=== PATIENT | female | born 1985 | race Caucasian/White ===

== ENCOUNTER → 2017-01-25 | Outpatient (CLI) | payer OTHER | LOC: FIMAGING 12:05 | PROVIDERS: ATTEND Obstetrics & Gynecology | DX: Z34.02 Encounter for supervision of normal first pregnancy, second trimester (principal) ==

== ENCOUNTER → 2017-06-05 | Outpatient (CLI) | payer OTHER | LOC: FIMAGING 14:38 | PROVIDERS: ATTEND Obstetrics & Gynecology | DX: O28.3 Abnormal ultrasonic finding on antenatal screening of mother (principal); Z3A.38 38 weeks gestation of pregnancy ==

== ENCOUNTER 2017-06-13 23:17 | Inpatient (IN) | payer OTHER ==
[2017-06-13] MEDS ORDERED: OLIVE OIL 118 ML BTL MISC PRN (23:36)
[2017-06-13] MEDS ORDERED: OXYTOCIN/RINGERS LACTATE 1,000 ML IV PRN (23:36)
[2017-06-13] MEDS ORDERED: EPSOM SALT 454 GM TP PRN (23:36)
[2017-06-13] MEDS ORDERED: TERBUTALINE SULFATE 1 MG/ML VIAL IV PRN (23:36)
[2017-06-13] MEDS ORDERED: LR 1,000 ML IV PRN (23:36)
[2017-06-14] MEDS ORDERED: fentaNYL 2MCG/ML/BUP 0.1% RTU 100 ML BAG EP ONE
[2017-06-14] MEDS ORDERED: BUPIVACAINE 0.25% 30 ML SDV ONE (00:01)
[2017-06-14] MEDS ORDERED: PHENYLEPHRINE HCL 100 MCG/ML SYR ONE (00:01)
[2017-06-14] MEDS ORDERED: OLIVE OIL 118 ML BTL ONE (00:02)
[2017-06-14] MEDS ORDERED: fentaNYL 100 MCG/2 ML INJ ONE (00:02)
[2017-06-14] MEDS ORDERED: LIDOCAINE 1% 300 MG/30 ML SDV ONE (00:02)
[2017-06-14] MEDS ORDERED: MISOPROSTOL 200 MCG TAB ONE (00:03)
[2017-06-14] MEDS ORDERED: TERBUTALINE SULFATE 1 MG/ML VIAL ONE (00:03)
[2017-06-14] MEDS ORDERED: OXYTOCIN 10 UNIT/ML VIAL ONE (00:03)
[2017-06-14] MEDS ORDERED: AMMONIA AROMATIC 1 EACH AMP IH ONE (00:03)
[2017-06-14 00:22] LABS: % IMMATURE GRANULYOCYTES 0.6 % (0.0-1.1); ABSOLUTE IMMATURE GRANULOCYTES 0.06 10^3/uL (0.00-0.10); ADD DIFF? NO; ADD MORPH? NO; ADD SCAN? NO; ATYPICAL LYMPHOCYTE FLAG 0 (0-99); FRAGMENT RBC FLAG 10 (0-99); HEMATOCRIT 38.2 % (38.0-47.0); HEMOGLOBIN 13.6 g/dL (12.6-16.3); LEFT SHIFT FLG 0 (0-99); LIPEMIA HEMOLYSIS FLAG 90 (0-99); MEAN CELL HEMOGLOBIN 32.2 pg (27.9-34.1); MEAN CELL HEMOGLOBIN CONCENTR. 35.6 g/dL (32.4-36.7); MEAN CELL VOLUME 90.5 fL (81.5-99.8); MEAN PLATELET VOLUME 10.5 fL (8.7-11.7); PLATELET CLUMPS FLAG 10 (0-99); PLATELET COUNT 236 10^3/uL (150-400); RED BLOOD CELL COUNT 4.22 10^6/uL (4.18-5.33); RED CELL DISTRIBUTION WIDTH 12.3 % (11.5-15.2)
[2017-06-14] MEDS ORDERED: NALOXONE HCL 0.4 MG/ML INJ IVP PRN (00:41)
[2017-06-14] MEDS ORDERED: ONDANSETRON 4 MG/2 ML VIAL IVP PRN (00:41)
[2017-06-14] MEDS ORDERED: PHENYLEPHRINE HCL 100 MCG/ML SYR IVP PRN (00:41)
[2017-06-14] MEDS ORDERED: fentaNYL 2MCG/ML/BUP 0.1% RTU 100 ML EP SCH (01:00)
[2017-06-14] MEDS ORDERED: LR 500 ML IV SCH (01:00)
[2017-06-14 01:44] LABS: ALANINE AMINOTRANSFERASE 37 IU/L (9-52); ASPARTATE AMINOTRANSFERASE 35 IU/L (14-46); BILIRUBIN,TOTAL 0.2 mg/dL (0.1-1.4); BILIRUBIN-CONJUGATED 0.1 mg/dL (0.0-0.5); BILIRUBIN-UNCONJUGATED 0.1 mg/dL (0.0-1.1); CREATININE 0.8 mg/dL (0.6-1.0); GLOMERULAR FILTRATION RATE > 60; LACTATE DEHYDROGENASE 555 IU/L (313-618); URIC ACID 7.5 mg/dL (2.5-6.8)
--- NOTE | 2017-06-14 04:24 | PDGENHP ---
History and Physical - Chief Complaint 32 y.o. at 39 5/7 weeks in active labor - History of Present Illness 32 y.o. at 39 5/7 weeks in active labor. History Information - Allergies/Home Medication List Allergies/Adverse Reactions: Sulfa (Sulfonamide Antibiotics) Allergy (Verified 06/13/17 23:36) Rash Home Medications: Labetalol HCl [Trandate 100 mg (*)] 1 tab PO BID 06/14/17 [Last Taken 06/13/17] Levothyroxine [Synthroid 50 mcg (*)] 50 mcg PO DAILY 06/14/17 [Last Taken ] 1 tab PO DAILY 06/14/17 [Last Taken 06/13/17] I have personally reviewed and updated: family history, medical history, social history, surgical history - Past Medical History Additional medical history: HSV I +, Hypothyroidism - Surgical History Reports: no pertinent surgical hx - Family History Positive for: cancer, diabetes type II, hypertension - Social History Smoking Status: Never smoked Alcohol Use: None Drug Use: None Review of Systems ROS: 10pt was reviewed & negative except for what was stated in HPI & below Constitutional: Reports: no symptoms, chills EENMT: Reports: no symptoms Cardiac: Reports: no symptoms Respiratory: Reports: no symptoms Gastrointestinal: Reports: no symptoms Genitourinary: Reports: no symptoms Muscolosketal: Reports: no symptoms Skin: Reports: no symptoms Neurological: Reports: no symptoms Hematologic/Lymphatic: Reports: no symptoms Immunologic/Allergy: Reports: no symptoms Physical Exam Constitutional: no apparent distress Eyes: PERRL Ears, Nose, Mouth, Throat: moist mucous membranes, hearing normal Cardiovascular: regular rate and rhythym, no murmur, rub, or gallop Respiratory: no respiratory distress Gastrointestinal: soft, non-tender abdomen, no palpable masses Genitourinary: no bladder fullness Skin: warm, normal color Musculoskeletal: full muscle strength, no muscle tenderness Neurologic: AAOx3 Psychiatric: interacting appropriately Lymph, Heme, Immunologic: no cervical LAD, no supraclavicular LAD Lab Data & Imaging Review 06/13/17 23:45 06/14/17 01:14 WBC 9.77 10^3/uL (3.80-9.50) H 06/13/17 23:45 RBC 4.22 10^6/uL (4.18-5.33) 06/13/17 23:45 Hgb 13.6 g/dL (12.6-16.3) 06/13/17 23:45 Hct 38.2 % (38.0-47.0) 06/13/17 23:45 MCV 90.5 fL (81.5-99.8) 06/13/17 23:45 MCH 32.2 pg (27.9-34.1) 06/13/17 23:45 MCHC 35.6 g/dL (32.4-36.7) 06/13/17 23:45 RDW 12.3 % (11.5-15.2) 06/13/17 23:45 Plt Count 236 10^3/uL (150-400) 06/13/17 23:45 MPV 10.5 fL (8.7-11.7) 06/13/17 23:45 Neut % (Auto) 66.4 % (39.3-74.2) 06/13/17 23:45 Lymph % (Auto) 25.0 % (15.0-45.0) 06/13/17 23:45 [place] % (Auto) 6.9 % (4.5-13.0) 06/13/17 23:45 Eos % (Auto) 0.7 % (0.6-7.6) 06/13/17 23:45 Baso % (Auto) 0.4 % (0.3-1.7) 06/13/17 23:45 Nucleat RBC Rel Count 0.0 % (0.0-0.2) 06/13/17 23:45 Absolute Neuts (auto) 6.49 10^3/uL (1.70-6.50) 06/13/17 23:45 Absolute Lymphs (auto) 2.44 10^3/uL (1.00-3.00) 06/13/17 23:45 Absolute Monos (auto) 0.67 10^3/uL (0.30-0.80) 06/13/17 23:45 Absolute Eos (auto) 0.07 10^3/uL (0.03-0.40) 06/13/17 23:45 Absolute Basos (auto) 0.04 10^3/uL (0.02-0.10) 06/13/17 23:45 Absolute Nucleated RBC 0.00 10^3/uL (0-0.01) 06/13/17 23:45 Immature Gran % 0.6 % (0.0-1.1) 06/13/17 23:45 Immature Gran # 0.06 10^3/uL (0.00-0.10) 06/13/17 23:45 BUN 10 mg/dL (7-23) 06/14/17 01:14 Creatinine 0.8 mg/dL (0.6-1.0) 06/14/17 01:14 Estimated GFR > 60 06/14/17 01:14 Uric Acid 7.5 mg/dL (2.5-6.8) H 06/14/17 01:14 Total Bilirubin 0.2 mg/dL (0.1-1.4) 06/14/17 01:14 Conjugated Bilirubin 0.1 mg/dL (0.0-0.5) 06/14/17 01:14 Unconjugated Bilirubin 0.1 mg/dL (0.0-1.1) 06/14/17 01:14 AST 35 IU/L (14-46) 06/14/17 01:14 ALT 37 IU/L (9-52) 06/14/17 01:14 Lactate Dehydrogenase 555 IU/L (313-618) 06/14/17 01:14 Patient ABO/Rh O POSITIVE 06/13/17 23:45 Antibody Screen NEGATIVE 06/13/17 23:45 Assessment & Plan Assessment: 32 y.o. female at 39 5/7 weeks in active labor. VSS- afebrile NST- reactive CAT I GBS NEG. SVE- 10/100/0 BBOW Plan: Admit in active labor. VS and EFM per protocol. Anticipate .
--- NOTE | 2017-06-14 04:28 | OBPROG ---
OBG Labor Progress Note Assessment/Plan: Assessment: 32 y.o. female at 39 5/7 weeks in active labor. VSS- afebrile NST- reactive CAT I Active labor. Plan: Admit to L&D for active labor. PETROS per patient request. Anticipate . 06/14/17 04:25 Subjective: Patient resting comfortably with PETROS in place and FOC present at bedside. Objective: 06/13/17 23:45 06/14/17 01:14 Patient ABO/Rh O POSITIVE 06/13/17 23:45 Uric Acid 7.5 mg/dL (2.5-6.8) H 06/14/17 01:14 Total Bilirubin 0.2 mg/dL (0.1-1.4) 06/14/17 01:14 Conjugated Bilirubin 0.1 mg/dL (0.0-0.5) 06/14/17 01:14 Unconjugated Bilirubin 0.1 mg/dL (0.0-1.1) 06/14/17 01:14 AST 35 IU/L (14-46) 06/14/17 01:14 ALT 37 IU/L (9-52) 06/14/17 01:14 Lactate Dehydrogenase 555 IU/L (313-618) 06/14/17 01:14 - SVE Dilation (cm): 10 Effacement (%): 100 Station: 0 Dilation Complete Date: 06/14/17 Dilation Complete Time: 04:14 - Procedures Non-surgical Procedures: Amniotomy - Physical Exam General Appearance: WD/WN, alert, no apparent distress Estimated Weight: 2501-3400g EENT: normal ENT inspection Neck: non-tender, full range of motion, normal inspection Respiratory: lungs clear, normal breath sounds Cardiac/Chest: regular rate, rhythm Abdomen: non-tender, soft Extremities: non-tender, normal inspection Back: Normal inspection Skin: normal color, warm/dry Neuro/Psych: alert, normal mood/affect, oriented x 3 Oxytocin Orders Assessment - Pre-Induction/Augmentation Assessment Gestational Age: 39 week(s) and 5 day(s) ICD10 Worksheet Patient Problems: Problems Problem Status Onset Active labor at term Acute - ICD10 Problem Qualifiers (1) Active labor at term
--- NOTE | 2017-06-14 06:31 | OBPROG ---
OBG Labor Progress Note Assessment/Plan: Assessment: 32 y.o. female at 39 5/7 weeks in active labor. VSS- afebrile NST- reactive CAT I Active labor. AROM with meconium-stained fluid. Plan: Allow patient to passively descend. Use peanut ball. Anticipate . 06/14/17 04:25 06/14/17 06:29 Subjective: Patient remains comfortable with PETROS in place. FOC present at bedside and supportive. Objective: 06/13/17 23:45 06/14/17 01:14 Patient ABO/Rh O POSITIVE 06/13/17 23:45 Uric Acid 7.5 mg/dL (2.5-6.8) H 06/14/17 01:14 Total Bilirubin 0.2 mg/dL (0.1-1.4) 06/14/17 01:14 Conjugated Bilirubin 0.1 mg/dL (0.0-0.5) 06/14/17 01:14 Unconjugated Bilirubin 0.1 mg/dL (0.0-1.1) 06/14/17 01:14 AST 35 IU/L (14-46) 06/14/17 01:14 ALT 37 IU/L (9-52) 06/14/17 01:14 Lactate Dehydrogenase 555 IU/L (313-618) 06/14/17 01:14 - SVE Dilation (cm): 10 Effacement (%): 100 Station: +1 Dilation Complete Date: 06/14/17 Dilation Complete Time: 04:14 - Procedures Non-surgical Procedures: Amniotomy - Physical Exam General Appearance: WD/WN, alert, no apparent distress Estimated Weight: 2501-3400g EENT: normal ENT inspection Neck: non-tender, supple, normal inspection Respiratory: lungs clear, normal breath sounds Cardiac/Chest: regular rate, rhythm Abdomen: non-tender, soft Extremities: non-tender, normal inspection Back: Normal inspection Skin: normal color, warm/dry Neuro/Psych: alert, normal mood/affect, oriented x 3 Oxytocin Orders Assessment - Pre-Induction/Augmentation Assessment Gestational Age: 39 week(s) and 5 day(s) Estimated Weight: 2501-3400g ICD10 Worksheet Patient Problems: Problems Problem Status Onset Active labor at term Acute - ICD10 Problem Qualifiers (1) Active labor at term
[2017-06-14] MEDS ORDERED: OXYTOCIN/RINGERS LACTATE 500 ML IV SCH (07:00)
[2017-06-14] MEDS ORDERED: CALCIUM CARBONATE 500 MG CHEWABLE TAB PO PRN (07:45)
[2017-06-14] MEDS ORDERED: ACETAMINOPHEN 325 MG TAB PO PRN (09:55)
[2017-06-14] MEDS ORDERED: SIMETHICONE 80 MG TAB CHEW PO PRN (09:55)
[2017-06-14] MEDS ORDERED: HYDROCORTISONE 0.5% CREAM TP PRN (09:55)
--- NOTE | 2017-06-14 09:57 | OBDEL ---
Info Type: Vaginal GBS+: No Indications for Delivery: Spontaneous Labor Vaginal Delivery - Labor and Delivery Onset of Contractions Date: 06/14/17 Onset of Contractions Time: 16:30 Onset of Contractions Type: Spontaneous Rupture of Membranes Date: 06/14/17 Rupture of Membranes Time: 04:14 Rupture of Membranes Type: Artificial Amniotic Fluid Color: Meconium Stained Dilation Complete Date: 06/14/17 Dilation Complete Time: 04:14 Placenta Delivery Date: 06/14/17 Non-surgical Procedures: Amniotomy Laceration: 2nd Degree Repair: 3-0, Vicryl Vaginal Sponge Count Correct: Yes Vaginal Needle Count Correct: Yes Vaginal Sweep Performed: No EBL: 200 ml Delivery Events: None [place] [facility] [place] Delivery Date: 06/14/17 Delivery Time: 08:43 ANDRES: 06/16/17 Gestational Age: 39 week(s) and 5 day(s) Sex of Infant: Male Score (1 Min): 8 Score (5 Min): 9 ICD10 Worksheet Patient Problems: Problems Problem Status Onset Active labor at term Acute
--- NOTE | 2017-06-14 09:58 | OBGCSDC ---
General Delivery Information - General Info : 1 Para: 0 Abortions: 0 Delivery Physician/CNM: Malia Camilo Admission Date: 06/14/17 Labs: Patient ABO/Rh O POSITIVE 06/13/17 23:45 Hct 38.2 % (38.0-47.0) 06/13/17 23:45 Vaginal - Diagnosis Labor: Spontaneous Rupture of Membranes Type: Artificial Amniotic Fluid Color: Meconium Stained Laceration: 2nd Degree Repair: 3-0, Vicryl Delivery Events: None - Operations/Procedures Non-surgical Procedures: Amniotomy - Hospital Course Antepartum: none Intrapartum: none - Delivery Type: Vaginal Non-surgical Procedures: Amniotomy EBL: 200 ml [place] [facility] [place] Delivery Date: 06/14/17 Delivery Time: 08:43 ANDRES: 06/16/17 Gestational Age: 39 week(s) and 5 day(s) Sex of Infant: Male Score (1 Min): 8 Score (5 Min): 9
[2017-06-14] MEDS: IBUPROFEN 600 MG TAB PO PRN ×3 (10:07→22:21)
[2017-06-14] MEDS ORDERED: ACYCLOVIR 400 MG TAB PO SCH (21:00)
[2017-06-14] MEDS: LABETALOL HCL 100 MG TAB PO SCH (21:46)
[2017-06-14] MEDS: DOCUSATE SODIUM 100 MG CAP PO PRN (21:46)
[2017-06-14] MEDS: LEVOTHYROXINE 50 MCG TAB PO SCH (21:54)
[2017-06-15] MEDS: IBUPROFEN 600 MG TAB PO PRN ×3 (04:26→19:45)
[2017-06-15] MEDS ORDERED: LEVOTHYROXINE 50 MCG TAB PO SCH (06:00)
--- NOTE | 2017-06-15 07:40 | OBPP ---
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 Baby is latching with use of nipple shield. Ambulating and urinating. Minimal pain. Lochia appropriate. No concerns Objective: 06/13/17 23:45 06/14/17 01:14 Patient ABO/Rh O POSITIVE 06/13/17 23:45 Uric Acid 7.5 mg/dL (2.5-6.8) H 06/14/17 01:14 Total Bilirubin 0.2 mg/dL (0.1-1.4) 06/14/17 01:14 Conjugated Bilirubin 0.1 mg/dL (0.0-0.5) 06/14/17 01:14 Unconjugated Bilirubin 0.1 mg/dL (0.0-1.1) 06/14/17 01:14 AST 35 IU/L (14-46) 06/14/17 01:14 ALT 37 IU/L (9-52) 06/14/17 01:14 Lactate Dehydrogenase 555 IU/L (313-618) 06/14/17 01:14 Temp Pulse Resp BP Pulse Ox 36.8 C 76 18 124/76 H 95 06/14/17 21:16 06/14/17 21:46 06/14/17 21:16 06/14/17 21:46 06/14/17 21:16 Gen: NAD Resp: unlabored CV: RRR Abd: soft, nontender, uterus firm below U Ext: warm/dry Uterine Tone: Firm
[2017-06-15] MEDS: DOCUSATE SODIUM 100 MG CAP PO PRN ×2 (08:22→19:45)
[2017-06-15] MEDS: LABETALOL HCL 100 MG TAB PO SCH ×2 (08:23→20:55)
[2017-06-15] MEDS: LEVOTHYROXINE 50 MCG TAB PO SCH (20:56)
[2017-06-15] MEDS ORDERED: ACYCLOVIR 400 MG TAB PO SCH (21:00)
[2017-06-16 00:42] VITALS: O2SAT 97
[2017-06-16] MEDS: IBUPROFEN 600 MG TAB PO PRN ×2 (02:21→08:21)
[2017-06-16] MEDS: LABETALOL HCL 100 MG TAB PO SCH (08:20)
[2017-06-16 08:21] VITALS: BP 120/75; PULSE 75
[2017-06-16] MEDS: DOCUSATE SODIUM 100 MG CAP PO PRN (08:21)
--- NOTE | 2017-06-16 08:24 | OBGCSDC ---
General Delivery Information - General Info : 2 Para: 2 Delivery Physician/CNM: Malia Camilo Labs: Patient ABO/Rh O POSITIVE 06/13/17 23:45 Hct 38.2 % (38.0-47.0) 06/13/17 23:45 Vaginal - Diagnosis Labor: Spontaneous Rupture of Membranes Type: Artificial Amniotic Fluid Color: Meconium Stained Laceration: 2nd Degree Repair: 3-0, Vicryl Delivery Events: None - Operations/Procedures Non-surgical Procedures: Amniotomy L&D Analgesia/Anesthesia Type: Epidural - Hospital Course Intrapartum: Uncomplicated : Routine pp care. Rh pos, rub imm - Delivery Non-surgical Procedures: Amniotomy L&D Analgesia/Anesthesia Type: Epidural Data [place] Delivery Date: 06/14/17 Delivery Time: 09:43 ANDRES: 06/16/17 Gestational Age: 40 week(s) and 0 day(s) Sex of : Male [place] Weight (gm): 2648 g Score (1 Min): 8 Score (5 Min): 9 Discharge Information - Discharge Information Discharge Medications: Ibuprofen Condition: Good Instruction/Follow Up: Six Weeks Discharge Physician/CNM: Kelly Klein
[2017-06-16 09:51] VITALS: RESP 18; TEMP 97.5
== END 2017-06-16 13:00 | disposition home or self-care (01) | DRG 774 ==
LOC: OBSVTOIN 23:17 → FLD 23:17 → FOB 06-14 12:15
PROVIDERS: ADMIT Midwife; ATTEND Obstetrics & Gynecology
DX: O70.1 Second degree perineal laceration during delivery (principal); O99.284 Endocrine, nutritional and metabolic diseases complicating childbirth; E03.9 Hypothyroidism, unspecified; O77.0 Labor and delivery complicated by meconium in amniotic fluid; O98.513 Other viral diseases complicating pregnancy, third trimester; B00.9 Herpesviral infection, unspecified; Z3A.39 39 weeks gestation of pregnancy; Z37.0 Single live birth
CPT/HCPCS: J2370; J2590; J3010; J3105

== ENCOUNTER → 2017-07-24 | Outpatient (CLI) | payer OTHER | LOC: FLACT 13:13 | PROVIDERS: ATTEND Obstetrics & Gynecology | DX: Z39.1 Encounter for care and examination of lactating mother (principal) | CPT/HCPCS: G0463 ==

== ENCOUNTER → 2017-08-28 | Outpatient (CLI) | payer OTHER | LOC: FLACT 09:59 | PROVIDERS: ATTEND Obstetrics & Gynecology | DX: Z39.1 Encounter for care and examination of lactating mother (principal) | CPT/HCPCS: G0463 ==

== ENCOUNTER 2019-05-05 10:11 | Inpatient (IN) | payer OTHER | END 2019-05-07 13:00 | disposition home or self-care (01) | LOC: FLD 10:11 → FOB 05-06 09:10 ==